=== PATIENT | male | born 1975 | race Caucasian/White ===

== ENCOUNTER → 2023-11-06 13:30 | Outpatient (REF) | payer OTHER, SELFPAY | LOC: REG 13:30 | PROVIDERS: ATTENDING PHYSICIAN Specialist; FAMILY PHYSICIAN Family Medicine | DX: N39.0 Urinary tract infection, site not specified (principal) | CPT/HCPCS: 87086 ==

== ENCOUNTER 2023-12-09 04:32 | Emergency (ER) | payer BC, SELFPAY ==
[2023-12-09 04:33] VITALS: BP 140/98
[2023-12-09 05:10] VITALS: BMI 28.8
--- NOTE | 2023-12-09 05:33 | ED.GENMED ---
Addendum entered and electronically signed by DESTINY Crandall 12/10/23 22:11:
Chart signed
Original Note:
History of Present Illness
<DESTINY Crandall - Last Filed: 12/09/23 06:14>
General
Chief Complaint: Skin Problem
Source: patient
Time Seen by Provider: 12/09/23 04:39
Travel History
Have you had any contact with someone who has COVID-19?: No
Do you have any symptoms of coronavirus? Fever > 100 degrees, chills, cough, shortness of breath, sore throat, loss of taste or smell, muscle aches, or headache?: No
History of Present Illness
History of Present Illness:
Pt is a 48 y/o male with a PMHx of diabetes, HTN, hyperlipidemia, and angioedema (reaction to lisinopril) presenting with an acute migratory rash since last night. Pt states the itch is moderate in intensity and constant, although where he is itchy
vaires. Pt reports watery eyes last night when his face was itching. He denies angioedema, SOB, chest pain, recent illness, new detergent/medications/foods, fever, or pain at the site of the rash. Pt denies similar symptoms previously or recent
travel. Pt denies tobacco or alcohol use. Pt denies any recent vaccinations. Pt denies PMHx of eczema or allergic dermatitis.
Past History
<DESTINY Crandall - Last Filed: 12/09/23 06:14>
Past History
ED Past Medical History: HTN, Hypercholesterolemia, NIDDM and Other (Hypospadias, Hiatel hernia)
ED Past Surgical History: Orthopedic and Urological
Social History
Tobacco: Non-smoker
Alcohol: None
Drug: None
Personal:
Living: with family
Family History
Family History: Sudden (Father at 54)
Review of Systems
<DESTINY Crandall - Last Filed: 12/09/23 06:14>
Review of Systems
All Other Systems: Not applicable
Constitutional: Reports no symptoms
EENT: Reports tearing (last night when his itching began)
Respiratory: Reports no symptoms
Cardiac: Reports no symptoms
ABD/GI: Reports nausea (last night) and other (loose stools yesterday)
: Reports no symptoms
Musculoskeletal: Reports no symptoms
Skin: Reports itching and rash
Neurological: Reports no symptoms
Endocrine: Reports no symptoms
Hematologic/Lymphatic: Reports no symptoms
Psychiatric: Reports no symptoms
Phy Exam
<DESTINY Crandall - Last Filed: 12/09/23 06:14>
General Physical Exam
General Presentation: well appearing
General age: appears stated age
General Skin: warm, dry and other
General Habitus: normal
General Mental: alert
General Hydration: appears well hydrated
ENT Exam
ENT Exam: EOMI, TM's normal, pharynx normal, neck supple and normocephalic
Eye Exam
Eye Exam: PERRL, EOMI and conjunctiva normal
Cardiovascular Exam
Cardiovascular Exam: regular rate/rhythm, no edema, no gallop and no murmur
Pulmonary Exam
Pulmonary Exam: lungs clear, no respiratory distress, no rales, no rhonchi and no cough
Gastrointestinal Exam
Gastrointestinal Exam: normal bowel sounds, soft and tender (Mild generalized TTP of all quadrants)
Palpation: generalized: Minimal tenderness
Skin Exam
Skin Exam: erythema, redness and other (diffuse macular rash on scalp, neck, forearms, chest, abdomen, back, and shins with dispersed excoriations on lower back and chest. Rash spares the palms and soles.)
Psychiatric Exam
Psychiatric Exam: normal mood/affect
Course
<DESTINY Crandall - Last Filed: 12/09/23 06:14>
Orders/Labs/Results
Orders:
Orders
12/09/23 05:41
Dexamethasone Pf [Decadron] 10 mg PO NOW STA
Loratadine [Claritin] 10 mg PO NOW STA
Vital Signs
Initial and Last Documented VS:
Initial Vital Signs
Temp Pulse Resp BP Pulse Ox
98.1 F 94 18 140/98 100
12/09/23 04:33 12/09/23 04:33 12/09/23 04:33 12/09/23 04:33 12/09/23 04:33
Last Documented Vital Signs
Temp Pulse Resp BP Pulse Ox
98.1 F 94 18 140/98 96
12/09/23 04:33 12/09/23 04:33 12/09/23 04:33 12/09/23 04:33 12/09/23 05:10
<Derrick Landers DO - Last Filed: 12/09/23 06:52>
Orders/Labs/Results
Orders:
Orders
12/09/23 05:41
Dexamethasone Pf [Decadron] 10 mg PO NOW STA
Loratadine [Claritin] 10 mg PO NOW STA
Vital Signs
Initial and Last Documented VS:
Initial Vital Signs
Temp Pulse Resp BP Pulse Ox
98.1 F 94 18 140/98 100
12/09/23 04:33 12/09/23 04:33 12/09/23 04:33 12/09/23 04:33 12/09/23 04:33
Last Documented Vital Signs
Temp Pulse Resp BP Pulse Ox
98.1 F 94 18 140/98 96
12/09/23 04:33 12/09/23 04:33 12/09/23 04:33 12/09/23 04:33 12/09/23 05:10
<DESTINY Crandall - Last Filed: 12/09/23 06:14>
MDM/Problems Addressed
Differential Diagnosis Includes:
Acute urticaria
Contact/allergic dermatitis
Pityriasis rosea
MDM/Problems Addressed:
diffuse itching
Chronic conditions affecting care: DM
<DESTINY Crandall - Last Filed: 12/09/23 06:14>
*Critical Care Note
Total Time (30-74mins, 75-104mins- exclusive of procedures): Not Applicable
ED Attending Note
<DESTINY Crandall - Last Filed: 12/09/23 06:14>
-
Portions of this chart may have been created with voice recognition software.� Occasional wrong word or��sound alike� substitutions may have occurred due to the inherent limitations of voice recognition software.
<Derrick Landers DO - Last Filed: 12/09/23 06:52>
ED Attending Note
Patient seen and examined by attending physician: Yes
I performed the substantive portion of visit, reviewed & personally made and approve the management plan that is documented in note by myself or DENAE.: Yes
ED Attending Note:
Pleasant 48-year-old male presents with allergic reaction. He states that this rash that he has throughout his torso is moderate in intensity. Patient denies any breathing issues. He reports no sore throat or chest pain. Patient is unsure of any
new direct contacts though he states that a coworker has similar symptoms that self resolved. Patient denies fever, chills, nausea and vomiting. Patient was seen in conjunction with the PA student. I have reviewed and agree with the history and
treatment plan presented. On my independent physical exam, patient is awake, alert, and oriented x3, urticaria present on the torso and head. Patient denies any breathing issues. Reports no shortness of breath. Plan is to discharge to home.
Patient is feeling better after the steroid administration. He is willing to take Atarax. Prescriptions will be sent.
Discharge Plan
Departure
Patient Disposition: Home (Routine Discharge)
Date of Disposition: 12/09/23
Time of Disposition: 06:36
Patient with high blood pressure during this ER visit?: Yes
Discharge Problem:
Allergic reaction, allergic reaction
Instructions: Hives (DC), Allergic Reaction ED
Prescriptions:
New
hydroxyzine HCl 10 mg tablet
10 mg PO Q8H Qty: 10 0RF
epinephrine [EpiPen] 0.3 mg/0.3 mL auto-injector
0.3 mg IM .STAT PRN (Reason: anaphylaxis) Qty: 1 0RF
No Action
ezetimibe 10 mg Tablet
10 mg PO DAILY
cholecalciferol (vitamin D3) [Vitamin D3] 25 mcg (1,000 unit) Tablet
25 mcg PO DAILY
Trulicity 3 mg/0.5 mL Pen Injector
3 mg SC TU
metformin 500 mg Tablet Extended Release 24 Hr
1,000 mg PO BID@0800,1700
amoxicillin-pot clavulanate [Augmentin] 875-125 mg Tablet
1 tab PO .[id number]
Patient Comments:
patient pick up man on 09/18/23
rosuvastatin [Crestor] 40 mg Tablet
40 mg PO DAILY
omega-3 acid ethyl esters [Lovaza] 1 gram Capsule
2 cap PO DAILY
phenazopyridine [Pyridium] 200 mg tablet
200 mg PO TID Qty: 6 0RF
ciprofloxacin HCl [Cipro] 500 mg tablet
500 mg PO BID Qty: 10 0RF
Referrals:
Gurvinder Madison DO [Family Provider] -
Activity Restrictions/Additional Instructions:
It was a pleasure meeting you and taking part in your care. We hope for your continued healing and wellness.
Please read discharge instructions in their entirety. However, they are for general education and may not describe your exact diagnosis at discharge. Information on your ER visit and medical conditions were discussed with you along with appropriate
follow up information...
If indicated, please take your medications as instructed and indicated on discharge paperwork.
Please schedule a follow up appointment as directed. Call to schedule an appointment
Please return to the emergency department with ANY change in, persisting, or worsening of symptoms. If any of your symptoms do not improve, or persist, or become more severe within 6-12 hours, please return to the emergency department for further
care.
Please return to the emergency department if you develop a headache, neck pain/stiffness, fever greater than 100.4F, chest pain, shortness of breath, persistent nausea, vomiting, slurred speech, difficulty walking, numbness/tingling, weakness, signs
of infection or any other symptoms that are worrisome to you.
If you have any questions or concerns please do not hesitate to call the Hospital at or E-mail me directly at [email or web address]
Interventions
Interventions:
*Risk Screen - Suicide Last Done: 12/09/23 04:33
*General Assessment Last Done: 12/09/23 05:10
*Neglect/Abuse Screening Last Done: 12/09/23 04:33
*ED COVID-19 Vaccine History Last Done: 12/09/23 05:10
ED- Cardiac Assessment Last Done: 12/09/23 05:10
ED- Pulmonary Assessment Last Done: 12/09/23 05:10
ED-Skin Assessment Last Done: 12/09/23 05:10
[2023-12-09] MEDS: DECADRON 10 MG PO (05:58)
[2023-12-09] MEDS: CLARITIN 10 MG PO (05:59)
== END 2023-12-09 07:10 | disposition home or self-care (01) ==
LOC: EMR 04:32
PROVIDERS: EMERGENCY PHYSICIAN Student in an Organized Health Care Education/Training Program; FAMILY PHYSICIAN Family Medicine
DX: T78.40XA Allergy, unspecified, initial encounter (principal); E11.8 Type 2 diabetes mellitus with unspecified complications; I10 Essential (primary) hypertension
CPT/HCPCS: 99283

== ENCOUNTER 2024-01-24 22:15 | Emergency (ER) | payer BC, SELFPAY ==
[2024-01-24 22:17] VITALS: BP 155/109
--- NOTE | 2024-01-24 23:31 | ED.MUSCINJ ---
HPI-Injury
General
Chief Complaint: Musculo-Skeletal Complaint
Source: patient
Exam Limitations: none
Time Seen by Provider: 01/24/24 23:00
Travel History
Have you had any contact with someone who has COVID-19?: No
Do you have any symptoms of coronavirus? Fever > 100 degrees, chills, cough, shortness of breath, sore throat, loss of taste or smell, muscle aches, or headache?: No
History of Present Illness-Injury
Initial Injury comments:
48-year-old [id number] male presents complaining of left hand pain after a fall while doing yard work today. He fell to the side and stop his fall with his hand. Complains of pain to the thenar eminence on the left hand as well as
slightly over the radial aspect of the left elbow. He did not hit his head. No other injuries. No other complaints at this time
Past History
Past History
ED Past Medical History: HTN, Hypercholesterolemia, NIDDM and Other (Hypospadias, Hiatel hernia)
ED Past Surgical History: Orthopedic and Urological
Social History
Tobacco: Non-smoker
Alcohol: None
Drug: None
Personal:
Living: with family
Family History
Family History: Sudden (Father at 54)
Phy Exam
Physical Exam
Physical Exam:
General: Well-appearing male no acute respiratory distress
HEENT: Normocephalic atraumatic neck is supple
Musculoskeletal exam: Left hand tender over the base of the thumb in the area of the scaphoid as well as the thenar eminence. No tenderness over the distal ulna or radius. The metacarpals are nontender. Left elbow is tender over the radial aspect
of the elbow. Pronation and supination passively does not reproduce elbow pain.
Vascular: 2+ radial pulse left wrist
Injury Course
Orders/Labs/Results
Orders:
Orders
01/24/24 22:20
CR Hand - Left Min 3 Views Urgent
Comment:
Reason For Exam: injury, pain
01/24/24 23:13
CR Elbow - Left Min 3 Views Urgent
Comment:
Reason For Exam: fall, pain
MDM/Problems Addressed
Differential Diagnosis Includes:
Left wrist and elbow pain after fall. Question contusion versus fracture versus dislocation
I have personally visualized x-rays of the left elbow and the left hand both of which are negative for acute fracture or dislocation. I am concerned for possible occult injury to the scaphoid given the tenderness. He was placed in a Velcro thumb
spica and will be follow-up with hand specialist for further evaluation
*Critical Care Note
Total Time (30-74mins, 75-104mins- exclusive of procedures): Not Applicable
ED Attending Note
-
Portions of this chart may have been created with voice recognition software.� Occasional wrong word or��sound alike� substitutions may have occurred due to the inherent limitations of voice recognition software.
Discharge Plan
Departure
Patient Disposition: Home (Routine Discharge)
Date of Disposition: 01/24/24
Time of Disposition: 23:35
Patient with high blood pressure during this ER visit?: No
Discharge Problem:
Hand sprain
Instructions: Muscle and Bone Pain (DC)
Prescriptions:
No Action
ezetimibe 10 mg Tablet
10 mg PO DAILY
cholecalciferol (vitamin D3) [Vitamin D3] 25 mcg (1,000 unit) Tablet
25 mcg PO DAILY
Trulicity 3 mg/0.5 mL Pen Injector
3 mg SC TU
metformin 500 mg Tablet Extended Release 24 Hr
1,000 mg PO BID@0800,1700
amoxicillin-pot clavulanate [Augmentin] 875-125 mg Tablet
1 tab PO .[id number]
Patient Comments:
patient hand picker on 09/18/23
rosuvastatin [Crestor] 40 mg Tablet
40 mg PO DAILY
omega-3 acid ethyl esters [Lovaza] 1 gram Capsule
2 cap PO DAILY
phenazopyridine [Pyridium] 200 mg tablet
200 mg PO TID Qty: 6 0RF
ciprofloxacin HCl [Cipro] 500 mg tablet
500 mg PO BID Qty: 10 0RF
hydroxyzine HCl 10 mg tablet
10 mg PO Q8H Qty: 10 0RF
epinephrine [EpiPen] 0.3 mg/0.3 mL auto-injector
0.3 mg IM .STAT PRN (Reason: anaphylaxis) Qty: 1 0RF
Referrals:
Arti Salazar DO [Active] -
Gurvinder Madison DO [Family Provider] -
Activity Restrictions/Additional Instructions:
Use splint. Elevate and ice. Use ibuprofen or Tylenol for pain. Follow-up with orthopedics for further evaluation
Interventions
Interventions:
*Risk Screen - Suicide Last Done: 01/24/24 22:17
*General Assessment Last Done: 01/24/24 22:17
*Neglect/Abuse Screening Last Done: 01/24/24 22:17
ED- Fall Risk Assessment Last Done: 01/24/24 23:13
ED-Musculoskeletal Assessment Last Done: 01/24/24 23:13
Discharge Date and Time
Print Language: YI
[2024-01-24 23:53] VITALS: BP 143/89
== END 2024-01-25 00:11 | disposition home or self-care (01) ==
LOC: EMR 22:15
PROVIDERS: EMERGENCY PHYSICIAN Emergency Medicine; FAMILY PHYSICIAN Family Medicine
DX: S63.92XA Sprain of unspecified part of left wrist and hand, initial encounter (principal); W19.XXXA Unspecified fall, initial encounter
CPT/HCPCS: 99283; 29125; 73080; 73130

== ENCOUNTER → 2024-03-29 10:54 | Outpatient (REF) | payer BC, SELFPAY ==
[2024-03-29 11:41] LABS: % Basophils 0.7 % (0-2); % Eosinophils 1.6 % (0-6); % Immature Granulocytes 0.3 % (0-0.5); % Lymphocytes 31.2 % (20.5-51.1); % Neutrophils 57.2 % (42.2-75.2); Absolute Eosinophils 0.1 10^3/uL (0-0.7); Absolute Lymphocytes 1.8 10^3/uL (1.2-3.4); Absolute Monocytes 0.5 10^3/uL (0.1-0.6); Absolute Neutrophils 3.3 10^3/uL (1.4-6.5); Hematocrit 39.4 % (39.0-52.0); Hemoglobin 14.2 g/dL (13.0-18.0); Mean Corpuscular Hgb 29.6 pg (27.0-31.0); Mean Corpuscular Volume 82.1 fL (80.0-94.0); Mean Platelet Volume 9.1 fL (7.4-10.4); Nucleated Red Blood Cells % 0 % (-); Platelet Count 181 10^3/uL (130-400); Red Cell Dist. Width 12.6 % (11.5-14.5); White Blood Cell Count 5.8 10^3/uL (4.8-10.8)
[2024-03-29 12:14] LABS: Blood Urea Nitrogen 17 mg/dl (9-20); Carbon Dioxide 26 mmol/L (22-30); Chloride 103 mmol/L (98-107); Glucose 224 mg/dl (70-99); Potassium 4.4 mmol/L (3.5-5.1); Sodium 139 mmol/L (135-145); eGFR > 60.00
== END ==
LOC: RCS 10:54
PROVIDERS: ATTENDING PHYSICIAN Orthopaedic Surgery; FAMILY PHYSICIAN Family Medicine
DX: Z01.818 Encounter for other preprocedural examination (principal)
CPT/HCPCS: 36415; 80048; 85025; 93005